=== PATIENT | female | born 1940 | race Two or more races ===

== ENCOUNTER 2023-10-05 10:31 | Emergency (ER) | payer OTHER ==
[~2023-10-05] VITALS: Ht 157.5 cm; Wt 71.2 kg
[~2023-10-05 10:31] MED LIST: AMBIEN10 MG PO; AMBIEN5 MG; AVAPRO150 MG; COLCRYS0.6 MG PO; COUMADIN2 MG PO; DICLOFENAC SODI50 MG PO; DIOVAN160 M1 PO; DIOVAN320 MG; EXFORGE 5-160 M1 TAB PO; HYDROCHLOROTHIA25 MG; INDOCIN25 MG PO; INDOMETHACIN50 MG PO; LIPITOR20 MG; LIPITOR20 MG PO; LOPID; METFORMIN HCL500 M2; TOPROL XL50 MG PO
[2023-10-05] MEDS ORDERED: DOLOGEN CAPLET1 EACH PO (16:16)
[2023-10-05] MEDS ORDERED: DUI500 PO (16:16)
== END 2023-10-05 16:38 | disposition home or self-care (01) ==
LOC: ER 10:31
DX: S01.82XA Laceration with foreign body of other part of head, initial encounter (principal); W18.39XA Other fall on same level, initial encounter; Y93.89 Activity, other specified; Y92.018 Other place in single-family (private) house as the place of occurrence of the external cause; E78.00 Pure hypercholesterolemia, unspecified; I10 Essential (primary) hypertension; M10.9 Gout, unspecified

== ENCOUNTER 2023-10-12 10:45 | Emergency (ER) | payer OTHER ==
[~2023-10-12] VITALS: Ht 152.4 cm; Wt 70.3 kg
[~2023-10-12 10:45] MED LIST changes: +DOLOGEN CAPLET1 EACH PO; +DUI500 PO
[2023-10-12] MEDS ORDERED: CARDURA1 MG PO (11:23)
== END 2023-10-12 11:46 | disposition home or self-care (01) ==
LOC: ER 10:45
DX: Z48.02 Encounter for removal of sutures (principal)

== ENCOUNTER 2023-10-17 08:08 | Emergency (ER) | payer OTHER ==
[~2023-10-17] VITALS: Ht 157.5 cm; Wt 71.7 kg
[~2023-10-17 08:08] MED LIST changes: +CARDURA1 MG PO
== END 2023-10-17 09:47 | disposition home or self-care (01) ==
LOC: ER 08:09
DX: Z48.02 Encounter for removal of sutures (principal)

== ENCOUNTER 2024-01-20 13:32 | Emergency (ER) | payer OTHER ==
[~2024-01-20] VITALS: Ht 157.5 cm; Wt 68.0 kg
[2024-01-20] MEDS ORDERED: FAMOTIDINE/PF 20 MG/2 ML VIAL IV ONE (15:00)
[2024-01-20] MEDS ORDERED: LACTOBACILLUS ACIDOPHILUS 1 CAP CAP PO ONE (15:00)
[2024-01-20 15:31] LABS: HEMATOCRIT 30.1 % (36.0-45.00); HEMOGLOBIN 10.5 g/dL (12.0-15.00); MEAN CELL VOLUME 88.4 fL (80.00-100.00); MEAN CORPUSCULAR HEMOGLOBIN 30.8 pg (27.00-32.0); MEAN CORPUSCULAR HGB CONC 34.8 g/dl (32.0-36.0); PLATELET COUNT 343 K/uL (150-450)
[2024-01-20 15:46] LABS: BILIRUBIN TOTAL 0.61 mg/dL (0.3-1.2); CALCIUM 9.3 mg/dL (8.5-10.1); GFR 53.21; GLOBULINA 3.3 G/DL (2.4-3.5); POTASSIUM 4.08 mEq/L (3.5-5.1); TOTAL PROTEIN 7.3 gm/dL (6.4-8.2)
[2024-01-20 16:49] LABS: RED CELL DISTRIBUTION WIDTH 16.2 % (11.5-14.5)
[2024-01-20 17:09] LABS: URINE APPEARANCE Clear; URINE BILIRRUBIN Negative (NEGATIVE); URINE BLOOD Trace; URINE COLOR Yellow; URINE GLUCOSE Negative (NEGATIVE); URINE LEUKOCYTE Trace; URINE NITRATE Negative; URINE PROTEIN Trace (NEGATIVE); URINE UROBILINOGEN 0.2 E.U./dl
[2024-01-20 17:12] LABS: URINE BACTERIA 30.2 uL (0.0-1933); URINE EPITHELIAL CELLS 5.5 uL (0.0-38.8); URINE RBC 6.8 uL (0.0-20.8); URINE WBC 16.1 uL (0.0-23.2)
[2024-01-20] MEDS ORDERED: APETIGEN L790 MG/15 PO (17:55)
[2024-01-20] MEDS ORDERED: INTESTINEX680 M1 PO (17:55)
[2024-01-20] MEDS ORDERED: FLUCONAZOLE 150 MG TABLET PO ONE (18:15)
== END 2024-01-20 18:19 ==
LOC: ER 13:33
PROVIDERS: Nurse Practitioner Family
DX: R10.2 Pelvic and perineal pain (principal); I10 Essential (primary) hypertension; H35.30 Unspecified macular degeneration; E78.49 Other hyperlipidemia; R73.03 Prediabetes; Z98.890 Other specified postprocedural states; N83.292 Other ovarian cyst, left side